=== PATIENT | female | born 1935 | race Caucasian/White ===

== ENCOUNTER 2018-06-18 19:18 | Emergency (ER) | payer MEDICARE ==
[~2018-06-18] VITALS: Ht 157.5 cm; Wt 54.4 kg
--- NOTE | 2018-06-18 20:48 | Diagnostic Imaging Report ---
CXR 2 VIEW - HOPD, 06/18/2018 12:00 AM Technique: CXR 2 VIEW - HOPD Comparison: None available. Clinical history: Cough Findings: See Impression Impression: 1. Lines/Tubes: Left port tip overlies the brachiocephalic SVC junction 2. Normal cardiac silhouette. Aortic calcifications. 3. Retrocardiac density presumably reflects a hiatal hernia. Consider follow-up upright PA and lateral. 4. No consolidation, effusion or pneumothorax. Signed by: Dr Jana Sears MD on 06/18/2018 8:45 PM
[2018-06-18 21:24] VITALS: BP 163/76
== END 2018-06-18 21:30 | disposition home or self-care (01) ==
LOC: FSED 19:18
DX: R05 Cough (principal); I10 Essential (primary) hypertension; K21.9 Gastro-esophageal reflux disease without esophagitis; F32.9 Major depressive disorder, single episode, unspecified; Z85.038 Personal history of other malignant neoplasm of large intestine
CPT/HCPCS: 71046; 80053; 80076; 82553; 84484; 85025; 99284

== ENCOUNTER → 2018-06-23 | Outpatient (CLI) | payer MEDICARE, OTHER ==
[~2018-06-23] MED LIST: IOPAMIDOL 370 MG/ML 200 ML INFUS..BTL INJ ONE; SODIUM CHLORIDE 0.9% 500ML 500 ML ONE; SODIUM CHLORIDE 0.9% 50ML 50 ML ONE
--- NOTE | 2018-06-23 14:27 | Diagnostic Imaging Report ---
EXAM: CT Chest WITH Contrast INDICATION: Bronchitis, chronic lower respiratory disease, history of colon cancer. COMPARISON: None TECHNIQUE: Chest was scanned utilizing a multidetector helical scanner from the lung apex through the level of the adrenal glands without administration of IV contrast. Coronal and sagittal reformations were obtained. Routine protocol was performed. Patient reportedly had a possible mild contrast reaction to iodinated contrast greater than 20 years ago. The patient is not pre-medicated, and the referring physician was notified. The referring physician and patient would like to proceed with the study without pre-medication. The risk of potential repeat or worsening allergic reaction was explained to the patient who elected to proceed with the study. IV CONTRAST: 100 mL of Isovue 370 RADIATION DOSE: Total DLP: 310 mGy*cm COMPLICATIONS: None FINDINGS: LINES/ TUBES: None. LUNGS AND AIRWAYS: The central airways are patent. Mild biapical pleural-parenchymal opacity. There is a 5 mm subpleural nodular opacity in the left lower lobe medial lung on series 3, image 63. Adjacently, there is a linear and nodular opacity, measuring up to 5 mm. Punctate additional 2 mm left lower lobe nodular opacity on image 60. PLEURA: The pleural spaces are clear. HEART AND MEDIASTINUM: Punctate 3 mm left lower lobe thyroid hypodensity, likely representing nodule. There are moderate atherosclerotic changes of the abdominal aorta and branch vessels. No evidence of central pulmonary embolism. Extensive coronary atherosclerosis. No evidence of cardiomegaly or pericardial effusion. UPPER ABDOMEN: There is a large hiatal hernia, which may be para-esophageal. There is small amount of fluid within the distal esophagus. The partially visualized liver, spleen, adrenal glands, and kidneys appear unremarkable. BONES/SOFT TISSUES: No acute osseous abdomen. No suspicious lytic or blastic lesions. IMPRESSION: Clustered nodules within the medial left lower lobe measuring up to 5 mm could be infectious or inflammatory. Follow-up chest CT is suggested in 3-6 months to assess for resolution. Large hiatal hernia, which may be paraesophageal, and could be further evaluated with barium swallow study of clinically indicated. Signed by: Dr. Nicole Sams MD on 06/23/2018 2:24 PM
== END ==
LOC: CT 10:34
PROVIDERS: ATTEND Internal Medicine
DX: J40 Bronchitis, not specified as acute or chronic (principal); Z85.038 Personal history of other malignant neoplasm of large intestine
CPT/HCPCS: 71260; 96360; J7040; Q9967

== ENCOUNTER → 2018-09-04 | Outpatient (CLI) | payer MEDICARE, OTHER ==
[~2018-09-04] MED LIST changes: -SODIUM CHLORIDE 0.9% 500ML 500 ML ONE
[2018-09-04 09:05] LABS: BLOOD UREA NITROGEN 18 mg/dL (7-26); BUN/CREATININE RATIO 23 (6-25); EST GLOMERULAR FILTRATION RATE > 60 ML/MIN (60-)
--- NOTE | 2018-09-04 10:17 | Diagnostic Imaging Report ---
EXAMINATION: CT scan of the chest with contrast. TECHNIQUE: Spiral CT images of the chest were performed from the lung apices to the level of the adrenal glands after the intravenous administration of 100 cc of Isovue-370. Coronal and sagittal reformatted images were obtained. COMPARISON: 06/23/2018 CLINICAL HISTORY:Follow-up nodules DISCUSSION: LINES/TUBES: None. LUNGS AND AIRWAYS: Unchanged clustered small nodules in the medial segment of the left lower lobe measuring up to 5 mm as seen on series 3 image 58. Adjacent juxtapleural reticular opacity is also unchanged. Biapical pleural-parenchymal scar is unchanged. No new nodules or consolidations. Trachea, mainstem bronchi, and central lobar and segmental bronchi are patent. Small focus of new tree-in-bud nodules in the right middle lobe (series 3 image 64). The airways are normal, without endobronchial lesions. PLEURA: No pneumothorax or pleural effusions. HEART AND MEDIASTINUM: Visualized portions of the thyroid gland are normal with the exception of a 2-3 mm hypoattenuating nodule in the deep left lobe, unchanged. Atherosclerotic calcification of the abdominal aorta, aortic arch, great vessel origins, and chenega coronary arteries. Tip of left subclavian port catheter is unchanged, lying at the brachiocephalic venous confluence. Hheart size is normal without pericardial effusion. Unchanged complex moderate hiatal hernia. LYMPH NODES: There is no mediastinal, hilar or axillary lymphadenopathy. ABDOMEN: Visualized portions of the liver, spleen, pancreas, adrenals, and kidneys are unremarkable. BONES AND SOFT TISSUES: No osseous destructive lesions. Multilevel degenerative disc changes of the thoracic partially visualized upper lumbar spine. IMPRESSION: Unchanged clustered solid nodules in the medial segment of the left lower lobe measuring up to 5 mm. Findings are again felt to be infectious or inflammatory in nature, and an additional 6 month follow-up CT scan of the chest is suggested to document continued stability or resolution. New small focus of tree-in-bud nodules in the right middle lobe likely reflects atypical infection or less likely aspiration. Unchanged moderate complex hiatal hernia which may be further evaluated by upper endoscopy or barium esophagram as previously discussed. Atherosclerotic vascular disease. Signed by: Dr. Joey Levy M.D. on 09/04/2018 10:13 AM
== END ==
LOC: CT 07:48
PROVIDERS: ATTEND Internal Medicine Hematology & Oncology
DX: R91.8 Other nonspecific abnormal finding of lung field (principal)
CPT/HCPCS: 36415; 71260; 82565; 84520; Q9967

== ENCOUNTER 2018-10-01 09:42 | Emergency (ER) | payer MEDICARE, OTHER ==
[~2018-10-01] VITALS: Ht 157.5 cm; Wt 54.4 kg
--- OUTSIDE RECORDS SUMMARY | 2018-10-01 09:44 | XMS REPORT | Continuity of Care Document ---
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 6832185 SNOMED-CT Unspecified fall 08/13/[address] Description [id number] Drug Treatment Unknown Allergies Code Code System Allergy Substance Type Reaction Severity Start Date End Date Status 62991 RXNorm IV Dye, Iodine Containing Contrast Media Drug allergy Unknown Active Results Laboratory Results Order: CBC PLATELET AUTO DIFF Specimen Source: BLOOD Body Site: [facility] Test Result Flag Range Unit Date 44789-2 1Leukocytes^^corrected for nucleated erythrocytes:NCnc:Pt:Bld:Qn:Automated count 4.85 4.80-10.80 10^3/ul 08/13/2018 17:26 789-8 1Erythrocytes:NCnc:Pt:Bld:Qn:Automated count 3.7 L 4.20-5.40 10^6/ul 08/13/2018 17:26 718-7 1Hemoglobin:MCnc:Pt:Bld:Qn 11.9 L 12.0-14.0 gm/dl 08/13/2018 17:26 4544-3 1Hematocrit:VFr:Pt:Bld:Qn:Automated count 35.7 L 37.0-47.0 % 08/13/2018 17:26 787-2 1Erythrocyte mean corpuscular volume:EntVol:Pt:RBC:Qn:Automated count 96.5 81.0-99.0 fL 08/13/2018 17:26 785-6 1Erythrocyte mean corpuscular hemoglobin:EntMass:Pt:RBC:Qn:Automated count 32.2 H 27.0-31.0 pg 08/13/2018 17:26 786-4 1Erythrocyte mean corpuscular hemoglobin concentration:MCnc:Pt:RBC:Qn:Automated count 33.3 33.0-37.0 gm/dl 08/13/2018 17:26 788-0 1Erythrocyte distribution width:Ratio:Pt:RBC:Qn:Automated count 12.9 11.5-14.5 % 08/13/2018 17:26 777-3 1Platelets:NCnc:Pt:Bld:Qn:Automated count 257 130-400 10^3/ul 08/13/2018 17:26 81310-0 1Platelet mean volume:EntVol:Pt:Bld:Qn:Automated count 9.0 A 7.4-10.4 fL 08/13/2018 17:26 Note: 'NOT MEASURED' RESULTS ARE DISPLAYED WHEN THE INSTRUMENT HAS A SUPPRESSED OR UNREPORTABLE RESULT. THIS WILL MOST OFTEN HAPPEN WITH THE MPV WHEN THERE IS AN ABNORMAL PLATELET DISTRIBUTION DUE TO A CRITICAL LOW VALUE OR PLATELET CLUMPING. THE RDW MAY BE SUPPRESSED IF THERE ARE MULTIPLE PEAKS PRESENT ON THE RBC HISTOGRAM. IN THIS CASE, A MANUAL REVIEW OF THE SLIDE WILL BE PERFORMED, AND RBC MORPHOLOGY WILL BE NOTED ON THE REPORT. 770-8 1Neutrophils/100 leukocytes:NFr:Pt:Bld:Qn:Automated count 75.6 H 42.0-75.0 % 08/13/2018 17:26 736-9 1Lymphocytes/100 leukocytes:NFr:Pt:Bld:Qn:Automated count 12.2 L 13.0-42.0 % 08/13/2018 17:26 5905-5 1Monocytes/100 leukocytes:NFr:Pt:Bld:Qn:Automated count 9.1 4.0-14.0 % 08/13/2018 17:26 713-8 1Eosinophils/100 leukocytes:NFr:Pt:Bld:Qn:Automated count 2.5 1.0-5.0 % 08/13/2018 17:26 706-2 1Basophils/100 leukocytes:NFr:Pt:Bld:Qn:Automated count 0.4 0.0-3.0 % 08/13/2018 17:26 1IG% 0.2 0.0-0.4 % 08/13/2018 17:26 * Performing Lab Footnotes:* [address] [place] [address] - [id number] - [address] [place] [address] - MD: DIRECTOR THU VERAS Order: CMP COMPREHENSIVE METABOLIC PANEL Specimen Source: BLOOD Body Site: [facility] Test Result Flag Range Unit Date 1Glucose 80 75-110 mg/dl 08/13/2018 17:26 1BUN 14 6.0-17.0 mg/dl 08/13/2018 17:26 1Creatinine 0.7 0.4-1.2 mg/dl 08/13/2018 17:26 1Sodium 137 137-145 mmol/l 08/13/2018 17:26 1Potassium 3.5 3.5-5.0 mmol/l 08/13/2018 17:26 1Chloride 105 98-107 mmol/l 08/13/2018 17:26 1CO2 26 22-30 mmol/l 08/13/2018 17:26 1Calcium 8.6 8.4-10.2 mg/dl 08/13/2018 17:26 1T Protein 6.9 5.1-8.7 gm/dl 08/13/2018 17:26 1Albumin 3.4 L 3.5-4.6 gm/dl 08/13/2018 17:26 1A/G Ratio 1 L 1.1-2.2 % 08/13/2018 17:26 1AST (SGOT) 16 11-36 U/L 08/13/2018 17:26 1ALT (SGPT) 20 11-40 U/L 08/13/2018 17:26 1Alkaline Phos 69 47-114 U/L 08/13/2018 17:26 1Total Bilirubin 0.3 0.2-1.2 mg/dl 08/13/2018 17:26 1Globulin 3.5 2.3-3.5 gm/dl 08/13/2018 17:26 1Calcium, Corrected 9.1 8.4-10.2 mg/dl 08/13/2018 17:26 Note: Various formulas exist for corrected serum calcium results, each yielding different values. This corrected result was based on the formula: Corrected Calcium=SerumCalcium + [0.8 * ( 4 - SerumAlbumin)] 1EGFR if >60 mL/min/1.73m^2 08/13/2018 17:26 1EGFR if Non- >60 mL/min/1.73m^2 08/13/2018 17:26 Note: Estimated Glomerular Filtration Rate (eGFR) Reference Intervals Decision Points for 18 years and older and average body mass: >=60 Does not exclude kidney disease. 30 - 59 Suggests moderate chronic kidney disease and indicates the need for further investigation including assessment of proteinuria and cardiovascular factors. < 30 Usually indicates a need for referral for assessment and management of chronic kidney failure. * Performing Lab Footnotes:* [address] [place], [place] [id number] [address] [address] MARÍA Villanueva MD: DIRECTOR THU VERAS Order: MAGNESIUM SERUM Specimen Source: BLOOD Body Site: [facility] Test Result Flag Range Unit Date 1Magnesium 1.8 1.6-2.3 mg/dl 08/13/2018 17:26 * Performing Lab Footnotes:* [address] [place] [address] [id number] - [address] [place] [address] MARÍA Villanueva MD: DIRECTOR THU VERAS Order: TROPONIN I QUANTITATIVE Specimen Source: BLOOD Body Site: [facility] Test Result Flag Range Unit Date 1Troponin-I <0.015 0.000-0.034 ng/ml 08/13/2018 17:26 Note: The 99th Percentile URL is 0.045 ng/mL for the Siemens Randolph Troponin I. The Joint Society of Cardiology/[place] College of Cardiology (ESC/ACC) and the National Academy of Clinical Biochemistry Standards of Laboratory Practices (NACB) recommends that the diagnosis of AMI includes the presence of clinical history suggestive of Acute Coronary Syndrome (ACS) and a maximum concentration of cardiac troponin exceeding the 99th percentile of a normal reference population [upper reference limit (URL)] on at least one occasion during the first 24 hours after the clinical event. * Performing Lab Footnotes:* [id number] [place] [address] MARÍA Villanueva MD: DIRECTOR THU VERAS Order: TSH ULTRA SENSITIVE Specimen Source: BLOOD Body Site: [facility] Test Result Flag Range Unit Date 1TSH 3.07 0.47-4.68 mIU/L 08/13/2018 17:26 * Performing Lab Footnotes:* [facility] [id number] [place] [address] MARÍA Villanueva MD: DIRECTOR THU VERAS Order: UA URINALYSIS WITH MICROSCOPY Specimen Source: URINE SPECIMENS Body Site: [facility] Test Result Flag Range Unit Date 78 1Color:Type:Pt:Urine:Nom LT. YELLOW 08/13/2018 17:14 5767-9 1Appearance:Aper:Pt:Urine:Nom CLEAR 08/13/2018 17:14 2349-9 1Glucose:ACnc:Pt:Urine:Ord NEGATIVE NEGATIVE 08/13/2018 17:14 5770-3 1Bilirubin:ACnc:Pt:Urine:Ord:Test strip NEGATIVE NEGATIVE 08/13/2018 17:14 2514-8 1Ketones:ACnc:Pt:Urine:Ord:Test strip TRACE A NEGATIVE 08/13/2018 17:14 5811-5 1Specific gravity:Rden:Pt:Urine:Qn:Test strip 1.015 A 1.005-1.030 08/13/2018 17:14 5794-3 1Hemoglobin:ACnc:Pt:Urine:Ord:Test strip TRACE-INTACT A NEGATIVE 08/13/2018 17:14 5803-2 1pH:LsCnc:Pt:Urine:Qn:Test strip 6.0 A 4.5-8.0 08/13/2018 17:14 16233-5 1Protein:ACnc:Pt:Urine:Ord:Test strip NEGATIVE NEGATIVE 08/13/2018 17:14 5818-0 1Urobilinogen:ACnc:Pt:Urine:Ord:Test strip 0.2 0.2 08/13/2018 17:14 5802-4 1Nitrite:ACnc:Pt:Urine:Ord:Test strip NEGATIVE NEGATIVE 08/13/2018 17:14 5799-2 1Leukocyte esterase:ACnc:Pt:Urine:Ord:Test strip NEGATIVE NEGATIVE 08/13/2018 17:14 5821-4 1Leukocytes:Naric:Pt:Urine sed:Qn:Microscopy.light.HPF 0-5 0-5 08/13/2018 17:14 58217-0 1Erythrocytes:Naric:Pt:Urine sed:Qn:Microscopy.light.HPF 5-10 A 0-5 08/13/2018 17:14 28171-6 1Epithelial cells.squamous:Naric:Pt:Urine sed:Qn:Microscopy.light.HPF 0-5 A 0-10 08/13/2018 17:14 5769-5 1Bacteria:Naric:Pt:Urine sed:Qn:Microscopy.light.HPF Trace None Seen,Trace 08/13/2018 17:14 * Performing Lab Footnotes:* [address] [place] [address] - [id number] - [facility] [address] - MD: DIRECTOR THU VERAS Radiology Results Order: [id number] CT CERVICAL SPINE W/O CONTRAST* Exam Completion Date:08/13/2018 16:07 Exam: Head CT without contrastHistory: Trauma, fallComparison studies: NoneTec hnique:Axial images were obtained from the skull base to the vertex.Coronal and sagittal images reconstructed from the axial data. Dose modulation,iterative re construction, and/or weight based adjustment of the mA/kV wasutilized to reduce the radiation dose to as low as reasonably achievable. Intravenous contrast: Non eFindings:Scalp: No abnormalities.Bones: No fractures, blastic or lytic lesions. Brain sulci: Mildly prominent.Ventricles: Mild compensatory dilatation. No hydro cephalus.Extra-axial spaces: No masses, no fluid collection. Parenchyma: No mass , acute hemorrhage or acute or chronic cortical infarcts. A few scatteredhypoden sities in the supratentorial white matter nonspecific but most compatiblewith ch ronic microvascular ischemic changes.Sellar/suprasellar region: No abnormalities .Craniocervical junction: Patent foramen magnum. No Chiari one malformation.Cerv ical spine CT:Fractures: None.Soft tissues: No gross acute abnormalities.[place] axial articulation: Intact.Alignment: Straightened cervical curvature may be pos itional. Minimalanterolisthesis of C2 on C3, C5 on C6 and C7 on T1 are most like ly degenerativein etiology.Cervicomedullary junction: No abnormalities. The fora men magnum is patent.Vertebrae: No infection or neoplasm.Degenerative changes: M oderate degenerative changes at the right C1-C2 lateral mass articulation.Modera tely degenerated C6-C7 disc with disc osteophyte complex which results inmild ca nal stenosis. Mild multilevel disc degeneration at the remaining cervicallevels. Water multilevel facet arthrosis. Multilevel uncovertebral and facetarthrosis r esult in multilevel foraminal stenosis (mild left at C3-C4, moderateleft C4-C5, moderate left and mild right C5-C6 and moderate bilaterally atC6-C7).Included chad ng apices: Mild nonspecific scarring bilaterally.Incidental findings:* Bilatera l lens replacements for previous cataract surgery.* Calcified atherosclerosis i n the common carotid arteries, carotid bulbs andcarotid siphons.* Partially john ged left chest port.* Nonspecific, nonaggressive-appearing sclerotic 8 mm lesio n in the rightclavicle, possibly bone island.IMPRESSION:Head CT:1. No acute abn ormalities.2. Mild generalized brain volume loss and chronic microvascular isch emicchanges.Cervical spine CT:1. No acute abnormalities.2. Moderate multilevel degenerative changes as described.3. Cannot exclude ligament, spinal cord and or vascular abnormalities on thebasis of this examination.This final report was electronically signed by Dr Thu May MD 08/13/20184:46 PMDictated By: THU ERVINDate: 08/13/2018 16:46 Order: [id number] CT HEAD W/O CONTRAST* Exam Completion Date:08/13/2018 16:07 Exam: Head CT without contrastHistory: Trauma, fallComparison studies: NoneTec hnique:Axial images were obtained from the skull base to the vertex.Coronal and sagittal images reconstructed from the axial data. Dose modulation,iterative re construction, and/or weight based adjustment of the mA/kV wasutilized to reduce the radiation dose to as low as reasonably achievable. Intravenous contrast: Non eFindings:Scalp: No abnormalities.Bones: No fractures, blastic or lytic lesions. Brain sulci: Mildly prominent.Ventricles: Mild compensatory dilatation. No hydro cephalus.Extra-axial spaces: No masses, no fluid collection. Parenchyma: No mass , acute hemorrhage or acute or chronic cortical infarcts. A few scatteredhypoden sities in the supratentorial white matter nonspecific but most compatiblewith ch ronic microvascular ischemic changes.Sellar/suprasellar region: No abnormalities .Craniocervical junction: Patent foramen magnum. No Chiari one malformation.Cerv ical spine CT:Fractures: None.Soft tissues: No gross acute abnormalities.[place] axial articulation: Intact.Alignment: Straightened cervical curvature may be pos itional. Minimalanterolisthesis of C2 on C3, C5 on C6 and C7 on T1 are most like ly degenerativein etiology.Cervicomedullary junction: No abnormalities. The fora men magnum is patent.Vertebrae: No infection or neoplasm.Degenerative changes: M oderate degenerative changes at the right C1-C2 lateral mass articulation.Modera tely degenerated C6-C7 disc with disc osteophyte complex which results inmild ca nal stenosis. Mild multilevel disc degeneration at the remaining cervicallevels. Water multilevel facet arthrosis. Multilevel uncovertebral and facetarthrosis r esult in multilevel foraminal stenosis (mild left at C3-C4, moderateleft C4-C5, moderate left and mild right C5-C6 and moderate bilaterally atC6-C7).Included chad ng apices: Mild nonspecific scarring bilaterally.Incidental findings:* Bilatera l lens replacements for previous cataract surgery.* Calcified atherosclerosis i n the common carotid arteries, carotid bulbs andcarotid siphons.* Partially john ged left chest port.* Nonspecific, nonaggressive-appearing sclerotic 8 mm lesio n in the rightclavicle, possibly bone island.IMPRESSION:Head CT:1. No acute abn ormalities.2. Mild generalized brain volume loss and chronic microvascular isch emicchanges.Cervical spine CT:1. No acute abnormalities.2. Moderate multilevel degenerative changes as described.3. Cannot exclude ligament, spinal cord and or vascular abnormalities on thebasis of this examination.This final report was electronically signed by Dr Thu May MD 08/13/20184:46 PMDictated By: THU ERVINDate: 08/13/2018 16:46 Order: [id number] XR CHEST AP/PA 1 VIEW* Exam Completion Date:08/13/2018 16:07 Examination: Single AP view of the chest.COMPARISON: None.INDICATION: Left chest port with tip over the SVC. DISCUSSION:Lines/tubes: None.Lungs: The lungs are well inflated and clear. No pneumonia or pulmonary edema.Pleura: No pleural effusion or pneumothorax.Heart and mediastinum: The heart and the mediastinum are unremarkable.Bones and soft tissues: No acute bony abnormalities. IMPRESS ION: 1. No acute cardiopulmonary abnormalities.This final report was electroni sim signed by Dr Jaleel Sears MD 08/13/20185:14 PMDictated By: MAURA SEARS EWDate: 08/13/2018 17:14 Vital Signs Vitals Value Date Pulse Rate 80 (beats)/min 08/13/2018 Respiratory Rate 18 (breaths)/min 08/13/2018 O2% BldC Oximetry 98 % 08/13/2018 BP Systolic 157 mmHg 08/13/2018 BP Diastolic 66 mmHg 08/13/2018 Body Temperature 98.5 F 08/13/2018 Height 62 in 08/13/2018 Weight Measured 117.72 lbs 08/13/2018 BSA (Body Surface Area) 1.87076 m2 08/13/2018 BMI (Body Mass Index) 21.6 kg/m2 08/13/2018 Advance Directives Patient does NOT have Living Will Directive Type Effective Date [employer] Notes Supporting Document Name Address Phone No Directive Type specified 08/13/2018 16:01 Not Specified Not Specified Not Specified None No Family History * No Data Reported Plan of Care * No data in the system Procedures Code Code System Procedure Name Target Site Date of Procedure XR CHEST AP/PA 1 VIEW 08/13/2018 17:20 CT HEAD W/O CONTRAST 08/13/2018 16:53 Encounters Date Code Diagnosis Status (ICD10) - R531 WEAKNESS Active Immunizations * No data in the system Functional Status * No data in the system Hospital Discharge Instructions * Discharge Instructions 2* Discharge Diagnosis* weakness/fall prevention * Important Information* Consult your physician or return to the Emergency Department immediately if worse, if not better as expected, or if any problems arise. * Follow Up Care* Yes * Important Information* Please understand that you have received care only on an emergency basis. If your condition does not improve, you should call your personal physician for follow-up care. If you do not have a physician, you may call the referred physician listed. * If you have questions about your care or these discharge instructions, you may call the Emergency Department. Please take your discharge paperwork with you to any follow-up appointments. * Follow Up Care* Patient To Schedule * Follow-Up With:* Primary Care Physician * Follow-Up Notes:* Follow up with PCP RAGHAVENDRA * Activity Level* As tolerated, unrestricted * Diet* Regular * Patient Teaching* Patient education provided * Activities * Dietary
--- OUTSIDE RECORDS SUMMARY | 2018-10-01 09:44 | XMS REPORT ---
[facility] Address Unknown Phone Unavailable Care Team Providers Care Endoscope Technician Name Role Phone JACOB DE LA VEGA Unavailable Unavailable ELMER DU Unavailable Unavailable HUGH LOWE Unavailable Unavailable JOSR REYES Unavailable Unavailable Problems This patient has no known problems. Allergies, Adverse Reactions, Alerts This patient has no known allergies or adverse reactions. Medications This patient has no known medications. Results Test Description Test Time Test Comments Text Results Atomic Results Result Comments CT CHEST W 2018-09-04 10:02:00 [place] [address] Patient Name: INES GONZALEZ MR #: [id number] : 1935 Age/Sex: 83/F Req #: [id number] Adm Physician: Ordered by: JACOB DE LA VEGA MD Report #: [id number] Location: CT Room/Bed: Procedure: [id number] CT/CT CHEST W Exam Date: 09/04/18 Exam Time: 0935 REPORT STATUS: Signed EXAMINATION: CT scan of the chest with contrast. TECHNIQUE: S piral CT images of the chest were performed from the lung apices to the level of the adrenal glands after the intravenous administration of 100 cc of Isovue-370. Coronal and sagittal reformatted images were obtained. COMPARISON: 06/23/2018 CLINICAL HISTORY:Follow-up nodules DISCUSSION: LINES/TUBES: None. LUNGS AND AIRWAYS: Unchanged clustered small nodules in the medial segment of the left lower lobe measuring up to 5 mm as seen on series 3 image 58. Adjacent juxtapleural reticular opacity is also unchanged. Biapical pleural-parenchymal scar is unchanged. No new nodules or consolidations. Trachea, mainstem bronchi, and central lobar and segmental bronchi are patent. Small focus of new tree-in-bud nodules in the right middle lobe (series 3 image 64). The airways are normal, without endobronchial lesions. PLEURA: No pneumothorax or pleural effusions. HEART AND MEDIASTINUM: Visualized portions of the thyroid gland are normal with the exception of a 2-3 mm hypoattenuating nodule in the deep left lobe, unchanged. Atherosclerotic calcification of the abdominal aorta, aortic arch, great vessel origins, and crow coronary arteries. Tip of left subclavian port catheter is unchanged, lying at the brachiocephalic venous confluence. Hheart size is normal without pericardial effusion. Unchanged complex moderate hiatal hernia. LYMPH NODES: There is no mediastinal, hilar or axillary lymphadenopathy. ABDOMEN: Visualized portions of the liver, spleen, pancreas, adrenals, and kidneys are unremarkable. BONES AND SOFT TISSUES: No osseous destructive lesions. Multilevel degenerative disc changes of the thoracic partially visualized upper lumbar spine. IMPRESSION: Unchanged clustered solid nodules in the medial segment of the left lower lobe measuring up to 5 mm. Findings are again felt to be infectious or inflammatory in nature, and an additional 6 month follow-up CT scan of the chest is suggested to document continued stability or resolution. New small focus of tree-in-bud nodules in the right middle lobe likely reflects atypical infection or less likely aspiration. Unchanged moderate complex hiatal hernia which may be further evaluated by upper endoscopy or barium esophagram as previously discussed. Atherosclerotic vascular disease. Signed by: Dr. Thu Boykin M.D. on 09/04/2018 10:13 AM Dictated By: THU BOYKIN MD 1013 Transcribed By: LATONIA on 09/04/18 1013 COPY TO: JACOB DE LA VEGA MD [facility] 2018-08-13 17:54:00 Glucose (test code=GLU) 80 mg/dl 75-110 BUN (test code=BUN) 14.0 mg/dl 6.0-17.0 Creatinine (test code=CREA) 0.7 mg/dl 0.4-1.2 Sodium (test code=NA) 137 mmol/l 137-145 Potassium (test code=K) 3.5 mmol/l 3.5-5.0 Chloride (test code=CL) 105 mmol/l 98-107 CO2 (test code=CO2) 26 mmol/l 22-30 Calcium (test code=CALC) 8.6 mg/dl 8.4-10.2 T Protein (test code=TP) 6.9 gm/dl 5.1-8.7 Albumin (test code=ALB) 3.4 gm/dl 3.5-4.6 A/G Ratio (test code=AGRAT) 1.0 % 1.1-2.2 AST (SGOT) (test code=AST) 16 U/L 11-36 ALT (SGPT) (test code=ALT) 20 U/L 11-40 Alkaline Phos (test code=ALKP) 69 U/L 47-114 Total Bilirubin (test code=TBIL) 0.3 mg/dl 0.2-1.2 Globulin (test code=GLOBU) 3.5 gm/dl 2.3-3.5 Calcium, Corrected (test code=CALCCORR) 9.1 mg/dl 8.4-10.2 Various formulas exist for corrected serum calcium results, each yielding different values. This corrected result was based on the formula: Corrected Calcium=SerumCalcium + [0.8 * ( 4 - SerumAlbumin)] EGFR if (test code=EGFRAA) >60 mL/min/1.73m\\S\\2 EGFR if Non- (test code=EGFRNA) >60 mL/min/1.73m\\S\\2 Estimated Glomerular Filtration Rate (eGFR) Reference Intervals Decision Points for 18 years and older and average body mass: >=60 Does not exclude kidney disease. 30 - 59 Suggests moderate chronic kidney disease and indicates the need for further investigation including assessment of proteinuria and cardiovascular factors. < 30 Usually indicates a need for referral for assessment and management of chronic kidney failure. TSH (Ultra Sensitive)2018-08-13 17:54:00* Test Item Value Reference Range Comments TSH (test code=TSH) 3.07 mIU/L 0.47-4.68 TROPONIN-I [id number] 17:51:00* Test Item Value Reference Range Comments Troponin-I (test code=TROP) <0.015 ng/ml 0.000-0.034 The 99th Percentile URL is 0.045 ng/mL for the Siemens [place] Troponin I. The Joint Society of Cardiology/[place] [employer] (ESC/ACC) and the National [...] first 24 hours after the clinical event. [id number] 17:41:00* Test Item Value Reference Range Comments Magnesium (test code=MG) 1.8 mg/dl 1.6-2.3 URINALYSIS WITH [id number] 17:36:00* Test Item Value Reference Range Comments Color (test code=UCOLR) LT. YELLOW Clarity (test code=UCLAR) CLEAR Glucose (test code=UGLUC) NEGATIVE NEGATIVE Bilirubin (test code=UBILI) NEGATIVE NEGATIVE Ketones (test code=UKET) TRACE NEGATIVE Specific [place] (test code=USPGR) 1.015 1.005-1.030 Blood (test code=UBLD) TRACE-INTACT NEGATIVE PH (test code=UPH) 6.0 4.5-8.0 Protein (test code=UPROT) NEGATIVE NEGATIVE Urobilinogen (test code=U UROB) 0.2 >0.2 Nitrite (test code=UNITR) NEGATIVE NEGATIVE Leukocyte Esterase (test code=ULEUK) NEGATIVE NEGATIVE WBC (test code=WBCUR) 0-5 0-5 RBC (test code=RBCUR) 5-10 0-5 Epithial Cells (test code=U EPI) 0-5 0-10 Bacteria (test code=UBACT) Trace None Seen,Trace CBC WITH AUTO [id number] 17:32:00* Test Item Value Reference Range Comments WBC (test code=WBC) 4.85 10\\S\\3/ul 4.80-10.80 RBC (test code=RBC) 3.70 10\\S\\6/ul 4.20-5.40 Hemoglobin (test code=HGB) 11.9 gm/dl 12.0-14.0 Hematocrit (test code=HCT) 35.7 % 37.0-47.0 MCV (test code=MCV) 96.5 fL 81.0-99.0 MCH (test code=MCH) 32.2 pg 27.0-31.0 MCHC (test code=MCHC) 33.3 gm/dl 33.0-37.0 RDW (test code=RDWVC) 12.9 % 11.5-14.5 Platelet (test code=PLT) 257 10\\S\\3/ul 130-400 MPV (test code=MPV) 9.0 fL 7.4-10.4 "NOT MEASURED" RESULTS ARE DISPLAYED WHEN THE INSTRUMENT HAS A SUPPRESSED OR UNREPORTABLE RESULT. THIS WILL MOST OFTEN HAPPEN WITH THE MPV WHEN THERE IS AN ABNORMAL PLATELET DISTRIBUTION DUE TO A CR ITICAL LOW VALUE OR PLATELET CLUMPING. THE RDW MAY BE SUPPRESSED IF THERE ARE MULTIPLE PEAKS PRESENT ON THE RBC HISTOGRAM. IN THIS CASE, A MANUAL REVIEW OF THE SLIDE WILL BE PERFORMED, AND RBC MORPHOLOGY WILL BE NOTED ON THE REPORT. NE% (test code=NE) 75.6 % 42.0-75.0 LY% (test code=LY) 12.2 % 13.0-42.0 MO% (test code=MO) 9.1 % 4.0-14.0 EO% (test code=EO) 2.5 % 1.0-5.0 BA% (test code=BA) 0.4 % 0.0-3.0 IG% (test code=IG%) 0.2 % 0.0-0.4 XR CHEST AP/PA 1 [id number] 17:20:39Examination: Single AP view of the chest.COMPARISON: None.INDICATION: Left chest port with tip over the SVC.DISCUSSION:Lines/tubes: None.Lungs: The lungs are well inflated and clear. No pneumonia or pulmonary edema.Pleura: No pleural effusion or pneumothorax.Heart and mediastinum: The heart and the mediastinum are unremarkable.Bones and soft tissues: No acute bony abnormalities.IMPRESSION:1. No acute cardiopulmonary abnormalities.This final report was electronically si gned by Dr Jaleel Sears MD 08/13/20185:14 PMDictated By: LUBNA SEARSWDate: 08/13/2018 17:14CT HEAD W/O [id number] 16:53:16Exam: Head CT without contrastHistory: Trauma, fallComparison studies: NoneTechnique:Axial images were obtained from the skull base to the vertex.Coronal and sagittal images reconstructed from the axial data. Dose modulation,iterative reconstruction, and/or weight based adjustment of the mA/kV wasutilized to reduce the radiation dose to as low as reasonably achievable.Intravenous contrast: None Findings:Scalp: No abnormalities.Bones: No fractures, blastic or lytic lesions.B rain sulci: Mildly prominent.Ventricles: Mild compensatory dilatation. No hydroc ephalus.Extra-axial spaces: No masses, no fluid collection.Parenchyma:No mass, a cute hemorrhage or acute or chronic cortical infarcts. A few scatteredhypodensit ies in the supratentorial white matter nonspecific but most compatiblewith chron ic microvascular ischemic changes.Sellar/suprasellar region: No abnormalities.Cr aniocervical junction: Patent foramen magnum. No Chiari one malformation.Cervica l spine CT:Fractures: None.Soft tissues: No gross acute abnormalities.Atlantoaxi al articulation: Intact.Alignment: Straightened cervical curvature may be positi onal. Minimalanterolisthesis of C2 on C3, C5 on C6 and C7 on T1 are most likely degenerativein etiology.Cervicomedullary junction: No abnormalities. The foramen magnum is patent.Vertebrae:No infection or neoplasm.Degenerative changes:Modera te degenerative changes at the right C1-C2 lateral mass articulation.Moderately degenerated C6-C7 disc with disc osteophyte complex which results inmild canal s tenosis. Mild multilevel disc degeneration at the remaining cervicallevels. Wate r multilevel facet arthrosis. Multilevel uncovertebral and facetarthrosis result in multilevel foraminal stenosis (mild left at C3-C4, moderateleft C4-C5, moder ate left and mild right C5-C6 and moderate bilaterally atC6-C7).Included lung ap ices:Mild nonspecific scarring bilaterally.Incidental findings:* Bilateral lens replacements for previous cataract surgery.* Calcified atherosclerosis in the common carotid arteries, carotid bulbs andcarotid siphons.* Partially imaged le ft chest port.* Nonspecific, nonaggressive-appearing sclerotic 8 mm lesion in t he rightclavicle, possibly bone island.IMPRESSION:Head CT:1. No acute abnormali ties.2. Mild generalized brain volume loss and chronic microvascular ischemicch anges.Cervical spine CT:1. No acute abnormalities.2. Moderate multilevel degen erative changes as described.3. Cannot exclude ligament, spinal cord and or vas cular abnormalities on thebasis of this examination.This final report was electr onically signed by Dr Thu May MD 08/13/20184:46 PMDictated By: CEM MAY VIDDate: 08/13/2018 16:46CT CERVICAL SPINE W/O [id number] 16:53:11Exam: Head CT without contrastHistory: Trauma, fallComparison studies: NoneTec hnique:Axial images were obtained from the skull base to the vertex.Coronal and sagittal images reconstructed from the axial data. Dose modulation,iterative re construction, and/or weight based adjustment of the mA/kV wasutilized to reduce the radiation dose to as low as reasonably achievable.Intravenous contrast: None Findings:Scalp: No abnormalities.Bones: No fractures, blastic or lytic lesions.B rain sulci: Mildly prominent.Ventricles: Mild compensatory dilatation. No hydroc ephalus.Extra-axial spaces: No masses, no fluid collection.Parenchyma:No mass, a cute hemorrhage or acute or chronic cortical infarcts. A few scatteredhypodensit ies in the supratentorial white matter nonspecific but most compatiblewith chron ic microvascular ischemic changes.Sellar/suprasellar region: No abnormalities.Cr aniocervical junction: Patent foramen magnum. No Chiari one malformation.Cervica l spine CT:Fractures: None.Soft tissues: No gross acute abnormalities.Atlantoaxi al articulation: Intact.Alignment: Straightened cervical curvature may be positi onal. Minimalanterolisthesis of C2 on C3, C5 on C6 and C7 on T1 are most likely degenerativein etiology.Cervicomedullary junction: No abnormalities. The foramen magnum is patent.Vertebrae:No infection or neoplasm.Degenerative changes:Modera te degenerative changes at the right C1-C2 lateral mass articulation.Moderately degenerated C6-C7 disc with disc osteophyte complex which results inmild canal s tenosis. Mild multilevel disc degeneration at the remaining cervicallevels. Jan r multilevel facet arthrosis. Multilevel uncovertebral and facetarthrosis result in multilevel foraminal stenosis (mild left at C3-C4, moderateleft C4-C5, moder ate left and mild right C5-C6 and moderate bilaterally atC6-C7).Included lung ap ices:Mild nonspecific scarring bilaterally.Incidental findings:* Bilateral lens replacements for previous cataract surgery.* Calcified atherosclerosis in the common carotid arteries, carotid bulbs andcarotid siphons.* Partially imaged le ft chest port.* Nonspecific, nonaggressive-appearing sclerotic 8 mm lesion in t he rightclavicle, possibly bone island.IMPRESSION:Head CT:1. No acute abnormali ties.2. Mild generalized brain volume loss and chronic microvascular ischemicch anges.Cervical spine CT:1. No acute abnormalities.2. Moderate multilevel degen erative changes as described.3. Cannot exclude ligament, spinal cord and or vas cular abnormalities on thebasis of this examination.This final report was electr onically signed by Dr Thu May MD 08/13/20184:46 PMDictated By: CEM MAY VIDDate: 08/13/2018 16:46CT CHEST [id number] 14:07:00 [place] [address] Patient Name: INES GONZALEZ MR #: [id number] : 1935 Age/Sex: 82/F Req #: [id number] Adm Physician: Ordered by: HUGH LOWE MD Report #: [id number] Location: CT Room/Bed: Procedure: [id number] CT/ CT CHEST W Exam Date: 06/23/18 Exam Time: 1300 REPORT STATUS: Signed EXAM: CT Chest WITH Contrast INDICATION: Bronchitis, chronic lower respiratory disease, hi story of colon cancer. COMPARISON: None TECHNIQUE: Chest was scan fatoumata utilizing a multidetector helical scanner from the lung apex through the l evel of the adrenal glands without administration of IV contrast. Coronal and sagittal reformations were obtained. Routine protocol was performed. Patient r eportedly had a possible mild contrast reaction to iodinated contrast greater than 20 years ago. The patient is not pre-medicated, and the referring physici an was notified. The referring physician and patient would like to proceed wit h the study without pre-medication. The risk of potential repeat or worsening allergic reaction was explained to the patient who elected to proceed with the study. IV CONTRAST: 100 mL of Isovue 370 RADIATION DOSE: Total DLP: 310 mGy*cm COMPLICATIONS: None FINDINGS: LINES/ TUBES: None. LUNGS AND AIRWAYS: The central airways are patent. Mild biapical pleural-parenchymal opacity. There is a 5 mm subpleural nodular opacity in the left lower lobe medial lung on series 3, image 63. Adjacently, there is a linear and nodular opacity, measuring up to 5 mm. Punctate additi onal 2 mm left lower lobe nodular opacity on image 60. PLEURA: The pleura l spaces are clear. HEART AND MEDIASTINUM: Punctate 3 mm left lower lobe th yroid hypodensity, likely representing nodule. There are moderate atherosclero tic changes of the abdominal aorta and branch vessels. No evidence of central pulmonary embolism. Extensive coronary atherosclerosis. No evidence of cardiom egaly or pericardial effusion. UPPER ABDOMEN: There is a large hiatal her domo, which may be para-esophageal. There is small amount of fluid within the d istal esophagus. The partially visualized liver, spleen, adrenal glands, and k idneys appear unremarkable. BONES/SOFT TISSUES: No acute osseous abdomen. N o suspicious lytic or blastic lesions. IMPRESSION: Clustered nodules within the medial left lower lobe measuring up to 5 mm could be infectious or inflammatory. Follow-up chest CT is suggested in 3-6 months to assess for res olution. Large hiatal hernia, which may be paraesophageal, and could be fur ther evaluated with barium swallow study of clinically indicated. Signed by: Dr. Michi Wright MD on 06/23/2018 2:24 PM Dictated By: MICHI WRIGHT MD E lectronically Signed By: MICHI WRIGHT MD on 06/23/18 1426 Transcribed By: LATONIA on 06/23/18 1427 COPY TO: HUGH LOWE MD CXR 2 VIEW - [facility] 2018-06-18 20:44:00 [place] [address] Patient Name: INES GONZALEZ MR #: [id number] : 1935 Age/Sex: 82/F Req #: [id number] Adm Physician: Ordered by: JOSR REYES MD Report #: [id number] Location: [facility] Room/Bed: Procedure: [id number] H OPD/CXR 2 VIEW - [facility] Exam Date: 06/18/18 Exam Time: 2037 REPORT STATUS: Signed CXR 2 VIEW - [facility], 06/18/2018 12:00 AM Technique: CXR 2 VIEW - [facility]D Comparison: None available. Clinical history: Cough Findings: See Impression Impression: 1. Lines/Tubes: Left port tip overlies the brachiocephalic SVC keyon ction 2. Normal cardiac silhouette. Aortic calcifications. 3. Retrocardiac d ensity presumably reflects a hiatal hernia. Consider follow-up upright PA and lateral. 4. No consolidation, effusion or pneumothorax. Signed by: Dr Lisy Sears MD on 06/18/2018 8:45 PM Dictated By: LISY SEARS MD E lectronically Signed By: LISY SEARS MD on 06/18/182044 Transcribed By: JOAN SOSA on 06/18/182044 COPY TO: JOSR REYES MD
--- NOTE | 2018-10-01 10:43 | NUR ---
CALLING [facility] IN [place] PER MD REQUEST MED LIST [phone]
--- NOTE | 2018-10-01 11:29 | Diagnostic Imaging Report ---
EXAM: PA and lateral views of the chest. COMPARISON: Chest radiograph 06/18/[address] chest 09/04/2018 CLINICAL HISTORY: ^[id number] ^[id number] FINDINGS: Lines/tubes: Left-sided chest port remains unchanged. Lungs: Stable nodular opacities in the left infrahilar region with mild bronchiectasis of the left perihilar region likely sequela of prior infection. No new consolidations. Pleura: There is no pleural effusion or pneumothorax. Heart and mediastinum: The cardiomediastinal silhouette is normal. Hiatal hernia, stable. Atherosclerotic calcifications of the aortic arch. Bones and soft tissues: No acute bony abnormalities. IMPRESSION: No acute cardiopulmonary abnormalities. Stable sequela of prior infection in the left perihilar region. Hiatal hernia, unchanged. Signed by: Dr. Anay Blackmon M.D. on 10/01/2018 11:26 AM
== END 2018-10-01 12:03 | disposition home or self-care (01) ==
LOC: FSED 09:42
DX: R05 Cough (principal); J20.9 Acute bronchitis, unspecified; H65.01 Acute serous otitis media, right ear; I10 Essential (primary) hypertension; K21.9 Gastro-esophageal reflux disease without esophagitis; F32.5 Major depressive disorder, single episode, in full remission; Z85.038 Personal history of other malignant neoplasm of large intestine; Z85.05 Personal history of malignant neoplasm of liver
CPT/HCPCS: 71046; 80048; 85025; 99284

== ENCOUNTER → 2019-09-10 | Outpatient (CLI) | payer MEDICARE ==
[~2019-09-10] MED LIST changes: +GADOBENATE DIMEGLUMINE 1 ML IV ONE; -IOPAMIDOL 370 MG/ML 200 ML INFUS..BTL INJ ONE; +SODIUM CHLORIDE 0.9% 100 ML ONE; -SODIUM CHLORIDE 0.9% 50ML 50 ML ONE
[2019-09-10 09:20] LABS: CREATININE, SERUM 0.91 mg/dL (0.57-1.11)
--- NOTE | 2019-09-10 10:45 | Diagnostic Imaging Report ---
History: Carotid stenosis, TIA, dizziness, weakness Comparison studies: Head CT 09/07/2019. Technique: Sagittal and axial T2 FS, axial DWI, axial T2*GRE, axial T1 FLAIR and axial coronal T2 FLAIR. Intravenous contrast: None Findings: Scalp: Normal in signal. No masses. Bone marrow: Normal in signal intensity. Brain sulci: Mildly prominent. Ventricles: Mild compensatory dilatation. No hydrocephalus. Extra axial spaces: No mass, no fluid collection. Parenchyma: No mass, hemorrhage or acute ischemia. Scattered T2 FLAIR hyperintense foci in the supratentorial white matter and in the aman are nonspecific but are most compatible with chronic microvascular ischemic changes. Suprasellar region: No abnormalities. Craniocervical junction: Patent foramen magnum. No Chiari malformation. Vessels: Normal flow-voids in the arteries and sinuses. Incidental findings: Bilateral intraocular lens replacements. Mildly degenerated disks with mild spinal canal stenosis due to disc osteophyte complexes at C3-C4 and at C4-C5. IMPRESSION: 1. No acute intracranial abnormalities. 2. Mild generalized parenchyma volume loss. 3. Mild to moderate chronic microvascular ischemic changes. Signed by: Dr. Joey May M.D. on 09/10/2019 10:42 AM
--- NOTE | 2019-09-10 11:41 | Diagnostic Imaging Report ---
History: Evaluate carotid stenosis Comparison studies: Carotid Doppler 09/07/2019 Technique: Precontrast axial 3-D vykb-jc-mprxob and postcontrast coronal T1 weighted with 3-D MIP reformats. Contrast: 12 cc ofMagnevist. Findings: Please note, any potential stenosis at the carotid bulbs is measured utilizing NASCET criteria which compares the narrowest ICA diameter at the carotid bulb to the diameter of the normal distal cervical ICA. Included aortic arch and great vessels: No flow signal abnormalities. Common carotid arteries: Patent, no flow signal abnormalities. Carotid bulbs: Luminal irregularity related to atherosclerosis with approximately 65-70% stenosis on the right and approximately 30% stenosis on the left. External carotid arteries: High-grade stenosis (greater than 75% stenosis) on the right and moderate stenosis (approximately 65 %) on the left. Internal carotid arteries: Patent, no significant stenosis beyond the bulbs bilaterally. Vertebral arteries: Patent, no significant stenosis bilaterally. IMPRESSION: 1. Atherosclerosis at the carotid bulbs with approximately 65-70% stenosis on the right and approximately 30% stenosis on the left. 2. High-grade stenosis at the origin of the right ECA. Moderate stenosis at the origin of the left ECA. 3. Patent vertebral arteries without significant stenosis. Signed by: Dr. Joey May M.D. on 09/10/2019 11:37 AM
== END ==
LOC: MRI 08:31
PROVIDERS: ATTEND Internal Medicine
DX: G45.9 Transient cerebral ischemic attack, unspecified (principal); R29.810 Facial weakness
CPT/HCPCS: 36415; 70549; 70551; 82565; 84520; J7050